=== PATIENT | male | born 1975 | race Caucasian/White ===

== ENCOUNTER 2020-09-21 17:36 | Emergency (ER) | payer OTHER ==
[~2020-09-21 17:36] MED LIST: FLAGYL500 MG PO; IBUPROFEN800 MG PO; PENVEE K 500 M500 MG PO; PERCOCET 5/325 T1 EA PO
[2020-09-21] MEDS ORDERED: TESSALON PERLE100 MG PO (20:01)
== END 2020-09-21 20:10 | disposition home or self-care (01) ==
LOC: ER1 17:36
DX: J06.9 Acute upper respiratory infection, unspecified (principal); R06.89 Other abnormalities of breathing; Z88.8 Allergy status to other drugs, medicaments and biological substances; Z20.822 Contact with and (suspected) exposure to COVID-19
CPT/HCPCS: 71045; 87081; 87880; 99285; U0003

== ENCOUNTER 2021-09-13 17:04 | Emergency (ER) | payer OTHER ==
[~2021-09-13 17:04] MED LIST changes: +TESSALON PERLE100 MG PO
[2021-09-13] MEDS ORDERED: MUCINEX DM ER1 EACH PO (20:04)
[2021-09-13] MEDS ORDERED: PROAIR HFA8.5 GM INH (20:04)
== END 2021-09-13 20:35 | disposition home or self-care (01) ==
LOC: ER1 17:04
DX: J20.9 Acute bronchitis, unspecified (principal); Z20.822 Contact with and (suspected) exposure to COVID-19; F17.210 Nicotine dependence, cigarettes, uncomplicated
CPT/HCPCS: 0240U; 71045; 87081; 87880; 99284

== ENCOUNTER 2022-03-31 16:16 | Inpatient (IN) | payer OTHER ==
[~2022-03-31] VITALS: Ht 185.4 cm; Wt 158.8 kg
[~2022-03-31 16:16] MED LIST changes: +MUCINEX DM ER1 EACH PO; +PROAIR HFA8.5 GM INH
[2022-03-31 17:33] LABS: BUN/CREATININE RATIO 22 (0-10)
[2022-03-31 18:56] LABS: HEMOGLOBIN 7.3 gm/dl (14.0-17.5); RED BLOOD COUNT 4.05 M/UL (4.20-5.50); WHITE BLOOD COUNT 8.6 K/UL (4.5-11.0)
[2022-04-01 04:19] LABS: HEMOGLOBIN 7.2 gm/dl (14.0-17.5); WHITE BLOOD COUNT 8.4 K/UL (4.5-11.0)
[2022-04-01 04:20] LABS: RED BLOOD COUNT 3.46 M/UL (4.20-5.50)
[2022-04-01 05:37] LABS: BUN/CREATININE RATIO 20 (0-10)
[2022-04-01] MEDS ORDERED: IRON PO (10:55)
[2022-04-02 04:36] LABS: HEMOGLOBIN 8.1 gm/dl (14.0-17.5); RED BLOOD COUNT 3.69 M/UL (4.20-5.50); WHITE BLOOD COUNT 8.3 K/UL (4.5-11.0)
[2022-04-02 05:30] LABS: BUN/CREATININE RATIO 13 (0-10)
[2022-04-03 05:23] LABS: HEMOGLOBIN 8.5 gm/dl (14.0-17.5); RED BLOOD COUNT 3.76 M/UL (4.20-5.50)
[2022-04-03 05:49] LABS: BUN/CREATININE RATIO 11 (0-10)
[2022-04-04 04:23] LABS: HEMOGLOBIN 8.4 gm/dl (14.0-17.5); RED BLOOD COUNT 3.79 M/UL (4.20-5.50)
[2022-04-04 04:52] LABS: BUN/CREATININE RATIO 11 (0-10)
[2022-04-04] MEDS ORDERED: PERCOCET 5/325 T1 EA PO (14:04)
[2022-04-04] MEDS ORDERED: SENNA S TABLET1 EACH PO (14:04)
--- NOTE | 2022-04-04 15:27 | NUR ---
informed dr. nick of dr ruben aguayo for patien to go home today
[2022-04-04] MEDS ORDERED: FERROUS SULFAT325 M2 PO (16:57)
== END 2022-04-04 17:31 | disposition home or self-care (01) | DRG 348 ==
LOC: ER1 16:16 → CDU 20:13 → M/S 20:13
PROVIDERS: Internal Medicine; Nurse Practitioner; ADMIT Internal Medicine
PROC: 30233N1 Transfusion of Nonautologous Red Blood Cells into Peripheral Vein, Percutaneous Approach (ICD-10-PCS; principal; 2022-04-01)
PROC: 0DJD8ZZ Inspection of Lower Intestinal Tract, Via Natural or Artificial Opening Endoscopic (ICD-10-PCS; 2022-04-02)
PROC: 06BY0ZC Excision of Hemorrhoidal Plexus, Open Approach (ICD-10-PCS; 2022-04-04)
DX: K64.8 Other hemorrhoids (principal); Z68.42 Body mass index [BMI] 45.0-49.9, adult; D50.9 Iron deficiency anemia, unspecified; K59.00 Constipation, unspecified; F20.9 Schizophrenia, unspecified; F41.9 Anxiety disorder, unspecified; Z96.651 Presence of right artificial knee joint; F32.A Depression, unspecified; F17.210 Nicotine dependence, cigarettes, uncomplicated; E66.9 Obesity, unspecified; Z88.2 Allergy status to sulfonamides; Z88.8 Allergy status to other drugs, medicaments and biological substances; Z83.438 Family history of other disorder of lipoprotein metabolism and other lipidemia; Z90.89 Acquired absence of other organs; Z90.49 Acquired absence of other specified parts of digestive tract; Z98.890 Other specified postprocedural states; Z82.49 Family history of ischemic heart disease and other diseases of the circulatory system
CPT/HCPCS: 0240U; 36415; 36430; 71045; 80048; 80053; 81001; 82272; 82550; 82553; 83540; 83550; 83735; 84439; 84443; 84484; 85018; 85025; 85027; 86850; 86900; 86901; 86920; 93005; 99285; C9113; J1100; J1170; J1756; J2001; J2250; J2405; J2704; J3010; J7040; J7050; P9016